=== PATIENT | male | born 1955 ===

== ENCOUNTER 2018-05-10 10:03 | Observation (INO) | payer OTHER ==
--- NOTE | 2018-05-10 10:24 | C.PDOC ---
History Of Present Illness 62 y/o male, w/PMhx of diabetes, presents to the ER complaining of red raised rash and itching to bilateral anterior cubital fossa , hands, feet, and back of head which has been present for the past few days. Patient states that he was seen in [facility] 3 days and he was prescribed Cephalaxin, Prednisone and Benadryl. However, he felt worse so he returned to [facility] for a 2nd visit the same day. He continued taking the medications with out relief. His symptoms worsened and he has pain and swelling to bottom of bilateral feet. He is unable to bear weight. Denies having fever, cough, runny nose, chest pain, SOB, nausea, vomiting, and diarrhea. Time Seen by Provider: 05/10/18 10:16 Chief Complaint (Nursing): Abnormal Skin Integrity History Per: Patient History/Exam Limitations: no limitations Onset/Duration Of Symptoms: Days Current Symptoms Are (Timing): Still Present Severity: Moderate Past Medical History Reviewed: Historical Data, Nursing Documentation, Vital Signs Vital Signs: Last Vital Signs Temp 99.0 F 05/10/18 10:29 Pulse 119 H 05/10/18 10:14 Resp 18 05/10/18 10:14 BP 153/84 H 05/10/18 10:14 Pulse Ox 96 05/10/18 12:14 - Medical History PMH: Diabetes Surgical History: No Surg Hx Family History: States: No Known Family Hx Review Of Systems Except As Marked, All Systems Reviewed And Found Negative. Constitutional: Negative for: Fever, Chills ENT: Negative for: Nose Discharge Cardiovascular: Negative for: Chest Pain Respiratory: Negative for: Cough, Shortness of Breath Gastrointestinal: Negative for: Nausea, Vomiting, Diarrhea Skin: Positive for: Rash (anterior cubital fossa, hands, feet, torso, back of head) Physical Exam - Physical Exam Appears: Non-toxic, No Acute Distress Skin: Warm, Dry, Rash (raised urticaria to bilateral anterior cubital fossa , hands, feet, and back of head ) Head: Atraumatic, Normacephalic Eye(s): bilateral: Normal Inspection Nose: Normal Oral Mucosa: Moist Throat: Normal, No Erythema, No Exudate Neck: Supple Chest: Symmetrical Cardiovascular: Rhythm Regular Respiratory: Normal Breath Sounds, No Rales, No Rhonchi, No Wheezing Neurological/Psych: Oriented x3, Normal Speech ED Course And Treatment - Laboratory Results Result Diagrams: 05/10/18 10:47 05/10/18 10:47 O2 Sat by Pulse Oximetry: 96 (RA) Pulse Ox Interpretation: Normal - Other Rad CXR X-Ray: Viewed By Me, Read By Radiologist Interpretation: Date of service: 05/10/2018. HISTORY: Sepsis Patient. COMPARISON: No prior. FINDINGS: LUNGS: Low-normal inspiration. No consolidation. PLEURA: No significant pleural effusion identified, no pneumothorax apparent. CARDIOVASCULAR: Normal. Probable prominent vessels seen on end the perihilar location. OSSEOUS STRUCTURES: No significant abnormalities. VISUALIZED UPPER ABDOMEN: Mild asymmetrical elevation the right hemidiaphragm. OTHER FINDINGS: None. IMPRESSION: No consolidation to suggest an infiltrate. - Physician Consult Information Time Consulting Physician Contacted: 12:08 Physician Contacted: Timoteo Celestin Outcome Of Conversation: Dr.Pandya coleman consulting with ID. Medical Decision Making Medical Decision Making: Plan: --Labs --UA --CXR --Benadryl IV --Prednisone IV --Morphine IV Disposition Discussed With Dr.: Timoteo Celestin Counseled Patient/Family Regarding: Studies Performed, Need For Followup - Disposition Disposition: HOSPITALIZED Disposition Time: 12:09 Forms: [employer] (Tai[place]ese) - Clinical Impression Clinical Impression: Skin lesion, Hives - Scribe Statement The provider has reviewed the documentation as recorded by the Edouardibbree Draper Provider Attestation: All medical record entries made by the Scribe were at my direction and personally dictated by me. I have reviewed the chart and agree that the record accurately reflects my personal performance of the history, physical exam, medical decision making, and the department course for this patient. I have also personally directed, reviewed, and agree with the discharge instructions and disposition. Decision To Admit - Pt Status Changed To: Hospital Disposition Of: Observation - . Bed Request Type: Regular Admitting Physician: Timoteo Celestin Patient Diagnosis: Skin lesion, Hives
--- NOTE | 2018-05-10 10:40 | RAD ---
Date of service: 05/10/2018 HISTORY: Sepsis Patient COMPARISON: No prior. FINDINGS: LUNGS: Low-normal inspiration. No consolidation. PLEURA: No significant pleural effusion identified, no pneumothorax apparent. CARDIOVASCULAR: Normal. Probable prominent vessels seen on end the perihilar location. OSSEOUS STRUCTURES: No significant abnormalities. VISUALIZED UPPER ABDOMEN: Mild asymmetrical elevation the right hemidiaphragm OTHER FINDINGS: None. IMPRESSION: No consolidation to suggest an infiltrate.
[2018-05-10 10:53] LABS: BASO # 0.1 K/uL (0.0-0.2); BASO % 0.8 % (0.0-2.0); EOS % 0.2 % (0.0-4.0); HEMOGLOBIN 16.9 g/dL (12.0-18.0); LYMPH # 1.8 K/uL (1.0-4.3); LYMPH % 12.4 % (20.0-40.0); MEAN CELL VOLUME 81.6 fL (80.0-94.0); MEAN CORPUSCULAR HEMOGLOBIN 27.8 pg (27.0-31.0); MEAN CORPUSCULAR HGB CONC 34.1 g/dL (33.0-37.0); MEAN PLATELET VOLUME 8.5 fL (7.2-11.7); MONO # 0.4 K/uL (0.0-0.8); MONO % 2.9 % (0.0-10.0); NEUT # 12.2 K/uL (1.8-7.0); NEUT % 83.7 % (50.0-75.0); NRBC % 0.1 % (0.0-2.0); RBC 6.05 Mil/uL (4.40-5.90); RED CELL DISTRIBUTION WIDTH 13.6 % (11.5-14.5); WHITE BLOOD COUNT 14.6 K/uL (4.8-10.8)
[2018-05-10 11:06] LABS: CALCIUM 9.2 mg/dl (8.6-10.4); GFR NON-AFRICAN AMERICAN > 60
[2018-05-10 11:08] LABS: ALB/GLOB RATIO 1.3 (1.0-2.1); ALBUMIN 4.1 g/dL (3.5-5.0); ALT/SGPT 25 U/L (21-72); AST/SGOT 37 U/L (17-59); BLOOD UREA NITROGEN 19 mg/dL (9-20)
[2018-05-10] MEDS ORDERED: DiphenhydrAMINE 50 mg/ml Inj IVP STA (11:19)
[2018-05-10] MEDS ORDERED: DiphenhydrAMINE 50 mg/ml Inj ONE (11:38)
[2018-05-10] MEDS ORDERED: Morphine 4 MG/ML VIAL ONE (11:38)
[2018-05-10 11:51] LABS: VENOUS BLOOD GAS BASE EXCESS -4.6 mmol/L (0.0-2.0); VENOUS BLOOD GAS PCO2 32 mmHg (40-60); VENOUS BLOOD GAS PO2 49 mm/Hg (30-55); VENOUS BLOOD PH 7.39 (7.32-7.43)
[2018-05-10 12:24] VITALS: RESP 20
[2018-05-10 12:33] LABS: URINE BILIRUBIN NEGATIVE (NEGATIVE); URINE BLOOD NEGATIVE (NEGATIVE); URINE CLARITY Clear (Clear); URINE COLOR Yellow (YELLOW); URINE GLUCOSE (UA) 3+ mg/dL (Normal); URINE LEUKOCYTE ESTERASE NEG Leu/uL (Negative); URINE PROTEIN NEGATIVE (NEGATIVE); URINE UROBILINOGEN NORMAL mg/dL (0.2-1.0)
[2018-05-10] MEDS ORDERED: Morphine 4 MG/ML VIAL IV PRN (14:22)
--- NOTE | 2018-05-10 14:22 | CP.PCM.HP ---
History of Present Illness - History of Present Illness History of Present Illness: CHIEF COMPLAINTS TODAY : Pain in the bilateral feet and hands secondary to new skin lesion 2 days ago patient broke out skin lesions urticarial type both feet in the process of the upper and lower extremities. Presented to [facility] was given oral antibiotics and prednisone without any relief patient continues to have increased pain in both feet and unable to walk. Patient has a history of diabetes no previous history of any allergies or skin lesions or travel outside the country ROS. HEENT : N. Resp : No cough, wheezing ,pleuritic CP ,or hemoptysis Cardio : No anginal CP, PND, orthopnea, palpitation GI : No abd.pain, n/v ,diarrhea or GI bleeding . 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 Musculoskel : No joint swelling , Derm : Urticarial rash Psych : Normal affect. Ext : No swelling ,calf pain PE. Pt. is alert awake in no distress. V.S As noted in the chart Head ,ear nose,throat and eyes : Normal. Neck : Supple with normal carotids. Lungs: Clear air entry. Heart : S1 & S2 normal with S4. No murmur. Abd : Soft non tender with normal bowel sounds. Neuro : Moves all ext. with no localized deficit. Ext : No edema with intact pulses.Non tender calves Derm : Erythematous urticarial wheals on both antecubital and knee fossa. LABS/RADIOLOGY: ASSESSMENT/PLAN : Generalized urticaria etiology unclear Type 2 diabetes. Present on Admission - Present on Admission Any Indicators Present on Admission: No Past Patient History - Past Social History Smoking Status: Never Smoked - CARDIAC Hx Hypertension: Yes - ENDOCRINE/METABOLIC Hx Diabetes Mellitus Type 1: Yes - PSYCHIATRIC Hx Substance Use: No - SURGICAL HISTORY Hx Surgeries: No - ANESTHESIA Hx Anesthesia: No Meds Allergies/Adverse Reactions: Allergies Allergy/AdvReac Type Severity Reaction Status Date / Time No Known Allergies Allergy Verified 05/10/18 10:17 Results - Vital Signs Recent Vital Signs: Last Vital Signs Temp 99.1 F 05/10/18 12:23 Pulse 118 H 05/10/18 12:23 Resp 20 05/10/18 12:23 BP 161/81 H 05/10/18 12:23 Pulse Ox 98 05/10/18 12:23 - Labs Result Diagrams: 05/10/18 10:47 05/10/18 10:47 Labs: Laboratory Results - last 24 hr 05/10/18 05/10/18 05/10/18 10:47 10:47 11:47 WBC 14.6 H RBC 6.05 H Hgb 16.9 Hct 49.4 MCV 81.6 MCH 27.8 MCHC 34.1 RDW 13.6 Plt Count 235 MPV 8.5 Neut % (Auto) 83.7 H Lymph % (Auto) 12.4 L [place] % (Auto) 2.9 Eos % (Auto) 0.2 Baso % (Auto) 0.8 Neut # (Auto) 12.2 H Lymph # (Auto) 1.8 [place] # (Auto) 0.4 Eos # (Auto) 0.0 Baso # (Auto) 0.1 ESR pO2 49 VBG pH 7.39 VBG pCO2 32 L VBG HCO3 21.0 VBG Total CO2 20.4 L VBG O2 Sat (Calc) 88.5 H VBG Base Excess -4.6 L VBG Potassium 3.8 Glucose 235 H Lactate 2.5 H Sodium 140 137.0 Potassium 4.4 Chloride 103 109.0 H Carbon Dioxide 19 L Anion Gap 22 H BUN 19 Creatinine 0.7 L Est GFR ( Amer) > 60 Est GFR (Non-Af Amer) > 60 Random Glucose 273 H Calcium 9.2 Total Bilirubin 0.9 AST 37 ALT 25 Alkaline Phosphatase 74 C-React Prot High Sens Total Protein 7.4 Albumin 4.1 Globulin 3.3 Albumin/Globulin Ratio 1.3 Venous Blood Potassium 3.8 Urine Color Urine Clarity Urine pH Ur Specific [place] Urine Protein Urine Glucose (UA) Urine Ketones Urine Blood Urine Nitrate Urine Bilirubin Urine Urobilinogen Ur Leukocyte Esterase Urine WBC (Auto) 05/10/18 05/10/18 05/10/18 12:03 12:12 12:12 WBC RBC Hgb Hct MCV MCH MCHC RDW Plt Count MPV Neut % (Auto) Lymph % (Auto) [place] % (Auto) Eos % (Auto) Baso % (Auto) Neut # (Auto) Lymph # (Auto) [place] # (Auto) Eos # (Auto) Baso # (Auto) ESR 13 pO2 VBG pH VBG pCO2 VBG HCO3 VBG Total CO2 VBG O2 Sat (Calc) VBG Base Excess VBG Potassium Glucose Lactate Sodium Potassium Chloride Carbon Dioxide Anion Gap BUN Creatinine Est GFR ( Amer) Est GFR (Non-Af Amer) Random Glucose Calcium Total Bilirubin AST ALT Alkaline Phosphatase C-React Prot High Sens > 15.00 H Total Protein Albumin Globulin Albumin/Globulin Ratio Venous Blood Potassium Urine Color Yellow Urine Clarity Clear Urine pH 5.0 Ur Specific [place] 1.029 Urine Protein Negative Urine Glucose (UA) 3+ H Urine Ketones Negative Urine Blood Negative Urine Nitrate Negative Urine Bilirubin Negative Urine Urobilinogen Normal Ur Leukocyte Esterase Neg Urine WBC (Auto) < 1
[2018-05-10] MEDS: MethylPREDNISolone 40 mg Vial IVP SCH ×2 (15:21→21:53)
[2018-05-10] MEDS ORDERED: (Novolin R) Insulin Human Regular 100 units/ml vial ONE (17:00)
[2018-05-10] MEDS: (Novolin R) Insulin Human Regular 100 units/ml vial SC SCH ×2 (17:08→23:12)
--- NOTE | 2018-05-10 22:49 | CP.PCM.CON ---
History of Present Illness - History of Present Illness History of Present Illness: INFECTIOUS DISEASE CONSULT; HPI; 62-year-old male with history of insulin-dependent diabetes mellitus, who presents to [facility] ER on 05/10/18 with complains of generalized urticarial rash on trunk lower extremities bilateral hands and feet and also to the face with edema of the hands and as reported by the daughter facial edema. Patient had presented to [facility] 3 days ago and was prescribed Keflex, prednisone and Benadryl, however he felt worse so he returned to [facility] for a second visit to same day. He was treated with steroids and discharged with same medications. His symptoms worsened especially the pain both feet with swelling off both his feet and hands. He states he was unable to bear weight and decided to come to the ER. Patient denies having fever, cough, shortness of breath, dysphagia, nausea, vomiting or diarrhea. Patient advised admission for observation and started on steroids, Benadryl and H2 blockers, and analgesics. Patient denies any an allergic trigger was on per any new medication, food or insect sting. States this is the first time it has ever happened. patient denies any recent history off upper respiratory tract infection or intake of seafood. Patient denies any history off allergies or previous skin conditions or recent travel. INFECTIOUS DISEASE CONSULTATION REQUESTE BY PMD LEUKOCYTOSIS , HIVES VERSUS ALLERGIC REACTION. PMH: Diabetes Surgical History: No Surg Hx Family History: States: No Known Family Hx. Allergies;; NKA. Review of Systems - Constitutional Constitutional: absent: Chills, Fever, Weight Loss - EENT Eyes: absent: Change in Vision Ears: absent: Ear Discharge, Ear Pain Nose/Mouth/Throat: absent: Nasal Congestion, Nasal Obstruction, Dysphagia, Hoarsness, Mouth Lesions, Throat Swelling, Tongue Swelling, Neck Pain - Cardiovascular Cardiovascular: Pedal Edema. absent: Chest Pain, Dyspnea - Respiratory Respiratory: absent: Cough, Dyspnea, Chest Congestion - Gastrointestinal Gastrointestinal: absent: Abdominal Pain, Diarrhea, Nausea, Odynophagia, Vomiting - Genitourinary Genitourinary: absent: Difficulty Urinating, Dysuria, Bladder Distension - Musculoskeletal Additional comments: BILATERAL HAND SWELLING AND ERYTHEMA AND SWELLING BOTH FEET PLANTAR ASPECT. - Neurological Neurological: Burning Sensations (BILATERAL FEETAND HANDS.). absent: Headaches - Hematologic/Lymphatic Hematologic: As Per HPI. absent: Lymphadenopathy Past Patient History - Past Social History Smoking Status: Never Smoked - CARDIAC Hx Hypertension: Yes - ENDOCRINE/METABOLIC Hx Diabetes Mellitus Type 1: Yes - PSYCHIATRIC Hx Substance Use: No - SURGICAL HISTORY Hx Surgeries: No - ANESTHESIA Hx Anesthesia: No Meds Allergies/Adverse Reactions: Allergies Allergy/AdvReac Type Severity Reaction Status Date / Time No Known Allergies Allergy Verified 05/10/18 10:17 - Medications Medications: Current Medications Diphenhydramine HCl (Benadryl) 50 mg IM Q8H PRN PRN Reason: Allergy symptoms Docusate Sodium (Colace) 100 mg PO DAILY [facility] Gabapentin (Neurontin) 300 mg PO BID [facility] Last Admin: 05/10/18 18:03 Dose: 300 mg Heparin Sodium (Porcine) (Heparin) 5,000 units SC Q12 [facility] Last Admin: 05/10/18 21:55 Dose: 5,000 units Insulin Human Regular (Novolin R) 0 unit SC ACHS [facility] PRN Reason: Protocol Last Admin: 05/10/18 17:08 Dose: 3 unit Methylprednisolone (Solu-Medrol) 40 mg IVP Q8 [facility] Last Admin: 05/10/18 21:53 Dose: 40 mg Morphine Sulfate (Morphine) 4 mg IV Q6 PRN PRN Reason: Pain, moderate (4-7) Pantoprazole Sodium (Protonix Inj) 40 mg IVP DAILY [facility] Last Admin: 05/10/18 17:08 Dose: 40 mg Physical Exam - Head Exam Head Exam: NORMAL INSPECTION, NORMOCEPHALIC - Eye Exam Eye Exam: EOMI, PERRL. absent: Scleral icterus Pupil Exam: PERRL - ENT Exam ENT Exam: Mucous Membranes Moist, Normal Oropharynx Additional comments: SOME FACIAL EDEMA - Neck Exam Neck exam: Positive for: Full Rom, Normal Inspection. Negative for: Lymphadenopathy, Thyromegaly - Respiratory Exam Respiratory Exam: NORMAL BREATHING PATTERN - Cardiovascular Exam Cardiovascular Exam: REGULAR RHYTHM, +S1, +S2 - GI/Abdominal Exam GI & Abdominal Exam: Normal Bowel Sounds, Soft. absent: Organomegaly, Tenderness - Extremities Exam Extremities exam: Positive for: normal capillary refill, pedal edema, tenderness , pedal pulses present. Negative for: calf tenderness - Back Exam Back exam: rash noted (PATIENT HAS TRUNCAL URTICARIAL RASH EXTENDING ONTO BILATERAL LOWER EXTREMITIES, UPPER EXTREMITIES, FACIAL AND BILATERAL FEET AND HANDS INCLUDING, PALMS AND SOLES.) - Neurological Exam Neurological exam: Alert, CN II-XII Intact, Oriented x3, Reflexes Normal - Psychiatric Exam Psychiatric exam: Normal Mood - Skin Skin Exam: Normal Color, Urticaria, Warm Results - Vital Signs Recent Vital Signs: Last Vital Signs Temp 97.9 F 05/10/18 18:57 Pulse 100 H 05/10/18 18:57 Resp 20 05/10/18 18:57 BP 137/75 05/10/18 18:57 Pulse Ox 94 L 05/10/18 18:57 - Labs Result Diagrams: 05/10/18 10:47 05/10/18 10:47 Labs: Laboratory Results - last 24 hr 05/10/18 05/10/18 05/10/18 10:47 10:47 11:47 WBC 14.6 H RBC 6.05 H Hgb 16.9 Hct 49.4 MCV 81.6 MCH 27.8 MCHC 34.1 RDW 13.6 Plt Count 235 MPV 8.5 Neut % (Auto) 83.7 H Lymph % (Auto) 12.4 L [place] % (Auto) 2.9 Eos % (Auto) 0.2 Baso % (Auto) 0.8 Neut # (Auto) 12.2 H Lymph # (Auto) 1.8 [place] # (Auto) 0.4 Eos # (Auto) 0.0 Baso # (Auto) 0.1 ESR pO2 49 VBG pH 7.39 VBG pCO2 32 L VBG HCO3 21.0 VBG Total CO2 20.4 L VBG O2 Sat (Calc) 88.5 H VBG Base Excess -4.6 L VBG Potassium 3.8 Glucose 235 H Lactate 2.5 H Sodium 140 137.0 Potassium 4.4 Chloride 103 109.0 H Carbon Dioxide 19 L Anion Gap 22 H BUN 19 Creatinine 0.7 L Est GFR ( Amer) > 60 Est GFR (Non-Af Amer) > 60 POC Glucose (mg/dL) Random Glucose 273 H Calcium 9.2 Total Bilirubin 0.9 AST 37 ALT 25 Alkaline Phosphatase 74 C-React Prot High Sens Total Protein 7.4 Albumin 4.1 Globulin 3.3 Albumin/Globulin Ratio 1.3 Vitamin B12 Venous Blood Potassium 3.8 Urine Color Urine Clarity Urine pH Ur Specific [place] Urine Protein Urine Glucose (UA) Urine Ketones Urine Blood Urine Nitrate Urine Bilirubin Urine Urobilinogen Ur Leukocyte Esterase Urine WBC (Auto) 05/10/18 05/10/18 05/10/18 12:03 12:12 12:12 WBC RBC Hgb Hct MCV MCH MCHC RDW Plt Count MPV Neut % (Auto) Lymph % (Auto) [place] % (Auto) Eos % (Auto) Baso % (Auto) Neut # (Auto) Lymph # (Auto) [place] # (Auto) Eos # (Auto) Baso # (Auto) ESR 13 pO2 VBG pH VBG pCO2 VBG HCO3 VBG Total CO2 VBG O2 Sat (Calc) VBG Base Excess VBG Potassium Glucose Lactate Sodium Potassium Chloride Carbon Dioxide Anion Gap BUN Creatinine Est GFR ( Amer) Est GFR (Non-Af Amer) POC Glucose (mg/dL) Random Glucose Calcium Total Bilirubin AST ALT Alkaline Phosphatase C-React Prot High Sens > 15.00 H Total Protein Albumin Globulin Albumin/Globulin Ratio Vitamin B12 Venous Blood Potassium Urine Color Yellow Urine Clarity Clear Urine pH 5.0 Ur Specific [place] 1.029 Urine Protein Negative Urine Glucose (UA) 3+ H Urine Ketones Negative Urine Blood Negative Urine Nitrate Negative Urine Bilirubin Negative Urine Urobilinogen Normal Ur Leukocyte Esterase Neg Urine WBC (Auto) < 1 05/10/18 05/10/18 05/10/18 16:48 19:35 21:16 WBC RBC Hgb Hct MCV MCH MCHC RDW Plt Count MPV Neut % (Auto) Lymph % (Auto) [place] % (Auto) Eos % (Auto) Baso % (Auto) Neut # (Auto) Lymph # (Auto) [place] # (Auto) Eos # (Auto) Baso # (Auto) ESR pO2 VBG pH VBG pCO2 VBG HCO3 VBG Total CO2 VBG O2 Sat (Calc) VBG Base Excess VBG Potassium Glucose Lactate Sodium Potassium Chloride Carbon Dioxide Anion Gap BUN Creatinine Est GFR ( Amer) Est GFR (Non-Af Amer) POC Glucose (mg/dL) 201 H 324 H Random Glucose Calcium Total Bilirubin AST ALT Alkaline Phosphatase C-React Prot High Sens Total Protein Albumin Globulin Albumin/Globulin Ratio Vitamin B12 439 Venous Blood Potassium Urine Color Urine Clarity Urine pH Ur Specific [place] Urine Protein Urine Glucose (UA) Urine Ketones Urine Blood Urine Nitrate Urine Bilirubin Urine Urobilinogen Ur Leukocyte Esterase Urine WBC (Auto) - Imaging and Cardiology Chest x-ray Status: Report reviewed by me (no acute infiltrate.) Assessment & Plan (1) Urticaria Assessment and Plan: PATIENT HAS URTICARIA R/O ALLERGIC VS IMMUNE MEDIATED VASCULITIS. R/O ANGIOEDEMA ? ALLERGIC VS AQUIRED CHECK ARMANDO. IMMUNOGLOBULINS-IGE,IGA,IGG,IGM. C2,C4, CH50. MYCOPLASMA iGm. RPR. VIT B12. CONTINUE iv sOLU-mEDROL, bENADRYL, AND ANALGESICS. START IV PROTONIX 40 MG ONCE A DAY DAILY. F/U BLOOD CULTURES, ua AND URINE CULTURES. WATCH FOR ANY RESPIRATORY COMPROMISE. Status: Acute (2) Diabetes mellitus Assessment and Plan: HEMOGLOBIN a1C. aDEQUATE CONTROL OF BLOOD SUGARS PATIENT ON STEROIDS. Status: Acute (3) Hypertension Assessment and Plan: PATIENT ON COREG nOT ON Yonathan THERAPY Status: Acute
[2018-05-11] MEDS: MethylPREDNISolone 40 mg Vial IVP SCH ×3 (06:08→21:21)
[2018-05-11] MEDS: (Novolin R) Insulin Human Regular 100 units/ml vial SC SCH ×4 (08:21→21:58)
[2018-05-11 08:22] LABS: IMMUNOGLOBULIN A 268.8 mg/dL (70.0-400.0)
[2018-05-11 08:24] LABS: IMMUNOGLOBULIN M < 25.0 mg/dL (40.0-230.0)
[2018-05-11] MEDS: DiphenhydrAMINE 50 mg/ml Inj IM PRN ×2 (08:36→16:45)
[2018-05-11 12:24] LABS: ANA PATTERN SPECKLED
--- NOTE | 2018-05-11 13:42 | CP.PCM.PN ---
Subjective - Date & Time of Evaluation Date of Evaluation: 05/11/18 Time of Evaluation: 13:40 - Subjective Subjective: CHIEF COMPLAINTS TODAY : Less pain and swelling of the both upper and lower extremities ROS. HEENT : N. Resp : No cough, wheezing ,pleuritic CP ,or hemoptysis Cardio : No anginal CP, PND, orthopnea, palpitation GI : No abd.pain, n/v ,diarrhea or GI bleeding . 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 Musculoskel : No joint swelling , Derm urticarial rash Psych : Normal affect. Ext : No swelling ,calf pain PE. Pt. is alert awake in no distress. V.S As noted in the chart Head ,ear nose,throat and eyes : Normal. Neck : Supple with normal carotids. Lungs: Clear air entry. Heart : S1 & S2 normal with S4. No murmur. Abd : Soft non tender with normal bowel sounds. Neuro : Moves all ext. with no localized deficit. Ext : No edema with intact pulses.Non tender calves with swelling of the palms and soles are receding Derm : Erythematous raised wheals on the upper extremities LABS/RADIOLOGY: ASSESSMENT/PLAN : Continue present medications Sugars are up secondary to steroids at all his diabetic medications taken at home Objective - Vital Signs/Intake and Output Vital Signs (last 24 hours): Temp Pulse Resp BP Pulse Ox 98.0 F 84 20 141/70 97 05/11/18 08:18 05/11/18 08:18 05/11/18 08:18 05/11/18 08:18 05/11/18 08:18 Intake and Output: 05/11/18 05/11/18 11:59 23:59 Intake Total 200 Balance 200 - Medications Medications: Current Medications Diphenhydramine HCl (Benadryl) 50 mg IM Q8H PRN PRN Reason: Allergy symptoms Last Admin: 05/11/18 08:36 Dose: 50 mg Docusate Sodium (Colace) 100 mg PO DAILY [facility] Last Admin: 05/11/18 10:16 Dose: 100 mg Gabapentin (Neurontin) 300 mg PO BID [facility] Last Admin: 05/11/18 10:16 Dose: 300 mg Heparin Sodium (Porcine) (Heparin) 5,000 units SC Q12 [facility] Last Admin: 05/11/18 10:16 Dose: 5,000 units Insulin Human Regular (Novolin R) 0 unit SC ACHS [facility] PRN Reason: Protocol Last Admin: 05/11/18 11:47 Dose: 8 unit Methylprednisolone (Solu-Medrol) 40 mg IVP Q8 [facility] Last Admin: 05/11/18 13:10 Dose: 40 mg Morphine Sulfate (Morphine) 4 mg IV Q6 PRN PRN Reason: Pain, moderate (4-7) Last Admin: 05/11/18 00:06 Dose: 4 mg Pantoprazole Sodium (Protonix Inj) 40 mg IVP DAILY [facility] Last Admin: 05/11/18 10:16 Dose: 40 mg - Labs Labs: 05/10/18 10:47 05/10/18 10:47
[2018-05-11] MEDS ORDERED: Home Med 1 UNIT (Empagliflozin [Jardiance] 25 MG) PO SCH (13:45)
[2018-05-11] MEDS: (Lantus) Insulin Glargine, Recombinant SC SCH (17:12)
--- NOTE | 2018-05-11 17:53 | CP.PCM.PN ---
Subjective - Date & Time of Evaluation Date of Evaluation: 05/11/18 Time of Evaluation: 17:53 - Subjective Subjective: CHIEF COMPLAINTS TODAY : afebrile, C/O ITCHING less facial swelling denies SOB/OR DYSPHAGIA Less pain and swelling of the both upper and lower extremities ROS. HEENT : N. Resp : No cough, wheezing ,pleuritic CP ,or hemoptysis Cardio : No anginal CP, PND, orthopnea, palpitation GI : No abd.pain, n/v ,diarrhea or GI bleeding . 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 Musculoskel : No joint swelling , Derm URTICARIAL RASH MUCH IMPROVED. Psych : Normal affect. Ext : No swelling ,calf pain PE. Pt. is alert awake in no distress. V.S As noted in the chart Head ,ear nose,throat and eyes : Normal. Neck : Supple with normal carotids. Lungs: Clear air entry. Heart : S1 & S2 normal with S4. No murmur. Abd : Soft non tender with normal bowel sounds. Neuro : Moves all ext. with no localized deficit. Ext : No edema with intact pulses. SWELLING OF THE PALMS AND SOLES IMPROVING. NONTENDER Derm : ERYTHEMATOUS RAISED WHEALS ON TRUNK AND UPPER EXTREMITIES FADING AWAY. LABS/RADIOLOGY: RPR-NONREACTIVE ESR 13-NORMAL, CRP >15 ARMANDO+VE POSITIVE- spectacled 1:40 c4 43.2 normal Objective - Vital Signs/Intake and Output Vital Signs (last 24 hours): Temp Pulse Resp BP Pulse Ox 98.0 F 78 20 134/68 95 05/11/18 16:33 05/11/18 16:33 05/11/18 16:33 05/11/18 17:25 05/11/18 16:33 Intake and Output: 05/11/18 05/11/18 06:59 18:59 Intake Total 200 300 Balance 200 300 - Medications Medications: Current Medications Carvedilol (Coreg) 12.5 mg PO BID [facility] Last Admin: 05/11/18 17:25 Dose: 12.5 mg Diphenhydramine HCl (Benadryl) 50 mg IM Q8H PRN PRN Reason: Allergy symptoms Last Admin: 05/11/18 16:45 Dose: 50 mg Docusate Sodium (Colace) 100 mg PO DAILY [facility] Last Admin: 05/11/18 10:16 Dose: 100 mg Gabapentin (Neurontin) 300 mg PO BID [facility] Last Admin: 05/11/18 17:12 Dose: 300 mg Heparin Sodium (Porcine) (Heparin) 5,000 units SC Q12 [facility] Last Admin: 05/11/18 10:16 Dose: 5,000 units Home Med (Empagliflozin [Jardiance]) 25 mg PO DAILY [facility] Insulin Glargine (Lantus) 45 unit SC BID [facility] Last Admin: 05/11/18 17:12 Dose: 45 units Insulin Human Regular (Novolin R) 0 unit SC ACHS [facility] PRN Reason: Protocol Last Admin: 05/11/18 16:56 Dose: 6 unit Metformin HCl (Glucophage) 1,000 mg PO BIDCC [facility] Last Admin: 05/11/18 16:44 Dose: 1,000 mg Methylprednisolone (Solu-Medrol) 40 mg IVP Q8 [facility] Last Admin: 05/11/18 13:10 Dose: 40 mg Morphine Sulfate (Morphine) 4 mg IV Q6 PRN PRN Reason: Pain, moderate (4-7) Last Admin: 05/11/18 00:06 Dose: 4 mg Pantoprazole Sodium (Protonix Inj) 40 mg IVP DAILY [facility] Last Admin: 05/11/18 10:16 Dose: 40 mg Sitagliptin Phosphate (Januvia) 50 mg PO DAILY [facility] - Labs Labs: 05/10/18 10:47 05/10/18 10:47 Assessment and Plan (1) Urticaria Assessment & Plan: improving. CONTINUE iv SOLU-mEDROL, bENADRYL, AND ANALGESICS. SWITCH TO PO MEDROL PACK IN AM as patient improving continue IV PROTONIX 40 MG ONCE A DAY DAILY. BLOOD CULTURES, URINE CULTURES -ve to date. Etiology of urticaria not clear ? allergic versus autoimmune vasculitis vs idiopathic AWAIT FURTHER STUDIES CHECK HIV 1 AND 2 ANTIBODY. T-CELL SUBSET STUDIES WITH CD4/CD8 RATIOS. DISCUSSED WITH FAMILY. F/U WITH ALLERGY /IMMUNOLOGY OPD. Status: Acute (2) Diabetes mellitus Assessment & Plan: BLOOD SUGAR SLIGHTLY HIGH, MOST PROBABLY SECONDARY TO STEROIDS. Status: Acute (3) Hypertension Status: Acute
[2018-05-11] MEDS ORDERED: Home Med 1 UNIT (Sitagliptin Phos/Metformin Hcl [Janumet 50-1,000 Mg Tablet] 1 EACH) PO SCH (18:00)
[2018-05-12] MEDS: DiphenhydrAMINE 50 mg/ml Inj IM PRN ×2 (01:56→11:19)
[2018-05-12] MEDS: MethylPREDNISolone 40 mg Vial IVP SCH ×2 (06:03→14:43)
[2018-05-12] MEDS: (Novolin R) Insulin Human Regular 100 units/ml vial SC SCH ×3 (08:13→17:15)
[2018-05-12 09:07] LABS: BASO % 0.3 % (0.0-2.0); LYMPH # 1.1 K/uL (1.0-4.3); LYMPH % 9.6 % (20.0-40.0); MEAN CELL VOLUME 82.7 fL (80.0-94.0); MEAN CORPUSCULAR HEMOGLOBIN 27.9 pg (27.0-31.0); MEAN CORPUSCULAR HGB CONC 33.7 g/dL (33.0-37.0); MEAN PLATELET VOLUME 8.4 fL (7.2-11.7); MONO # 0.3 K/uL (0.0-0.8); MONO % 2.3 % (0.0-10.0); NEUT # 9.7 K/uL (1.8-7.0); NEUT % 87.8 % (50.0-75.0); PLATELET COUNT 203 K/uL (130-400); RBC 4.58 Mil/uL (4.40-5.90); RED CELL DISTRIBUTION WIDTH 13.3 % (11.5-14.5); WHITE BLOOD COUNT 11.1 K/uL (4.8-10.8)
[2018-05-12 09:13] LABS: HEMOGLOBIN 12.8 g/dL (12.0-18.0)
[2018-05-12 09:33] LABS: ALB/GLOB RATIO 1.3 (1.0-2.1); ALBUMIN 3.5 g/dL (3.5-5.0); ALT/SGPT 26 U/L (21-72); AST/SGOT 34 U/L (17-59); BLOOD UREA NITROGEN 24 mg/dL (9-20); CALCIUM 8.8 mg/dl (8.6-10.4); GFR NON-AFRICAN AMERICAN > 60
[2018-05-12 10:06] LABS: LYMPHOCYTE 10 % (20-40); MONOCYTE 1 % (0-10); NEUTROPHIL 89 % (50-75); TOTAL CELLS COUNTED 100
[2018-05-12 10:07] LABS: PLATELET ESTIMATE NORMAL (NORMAL)
[2018-05-12] MEDS: (Lantus) Insulin Glargine, Recombinant SC SCH ×2 (10:55→17:15)
--- NOTE | 2018-05-12 14:17 | CP.PCM.DIS ---
Provider - Provider Date of Admission: 05/10/18 12:10 Attending physician: Timoteo Celestin MD Time Spent in preparation of Discharge (in minutes): 36 Hospital Course - Lab Results Lab Results: Micro Results 05/10/18 12:03 Urine,Random Urine Culture - Final No Growth (<1,000 CFU/ML) 05/10/18 10:43 Blood Blood Culture - Preliminary NO GROWTH AFTER 24 HOURS 05/10/18 11:00 Blood Blood Culture - Preliminary NO GROWTH AFTER 24 HOURS Most Recent Lab Values WBC 11.1 K/uL (4.8-10.8) H 05/12/18 08:54 RBC 4.58 Mil/uL (4.40-5.90) 05/12/18 08:54 Hgb 12.8 g/dL (12.0-18.0) D 05/12/18 08:54 Hct 37.9 % (35.0-51.0) 05/12/18 08:54 MCV 82.7 fL (80.0-94.0) 05/12/18 08:54 MCH 27.9 pg (27.0-31.0) 05/12/18 08:54 MCHC 33.7 g/dL (33.0-37.0) 05/12/18 08:54 RDW 13.3 % (11.5-14.5) 05/12/18 08:54 Plt Count 203 K/uL (130-400) 05/12/18 08:54 MPV 8.4 fL (7.2-11.7) 05/12/18 08:54 Neut % (Auto) 87.8 % (50.0-75.0) H 05/12/18 08:54 Lymph % (Auto) 9.6 % (20.0-40.0) L 05/12/18 08:54 [place] % (Auto) 2.3 % (0.0-10.0) 05/12/18 08:54 Eos % (Auto) 0.0 % (0.0-4.0) 05/12/18 08:54 Baso % (Auto) 0.3 % (0.0-2.0) 05/12/18 08:54 Neut # (Auto) 9.7 K/uL (1.8-7.0) H 05/12/18 08:54 Lymph # (Auto) 1.1 K/uL (1.0-4.3) 05/12/18 08:54 Ponce # (Auto) 0.3 K/uL (0.0-0.8) 05/12/18 08:54 Eos # (Auto) 0.0 K/uL (0.0-0.7) 05/12/18 08:54 Baso # (Auto) 0.0 K/uL (0.0-0.2) 05/12/18 08:54 Neutrophils % (Manual) 89 % (50-75) H 05/12/18 08:54 Lymphocytes % (Manual) 10 % (20-40) L 05/12/18 08:54 Monocytes % (Manual) 1 % (0-10) 05/12/18 08:54 Platelet Estimate Normal (NORMAL) 05/12/18 08:54 ESR 13 mm/hr (0-15) 05/10/18 12:12 pO2 49 mm/Hg (30-55) 05/10/18 11:47 VBG pH 7.39 (7.32-7.43) 05/10/18 11:47 VBG pCO2 32 mmHg (40-60) L 05/10/18 11:47 VBG HCO3 21.0 mmol/L 05/10/18 11:47 VBG Total CO2 20.4 mmol/L (22-28) L 05/10/18 11:47 VBG O2 Sat (Calc) 88.5 % (40-65) H 05/10/18 11:47 VBG Base Excess -4.6 mmol/L (0.0-2.0) L 05/10/18 11:47 VBG Potassium 3.8 mmol/L (3.6-5.2) 05/10/18 11:47 Sodium 137.0 mmol/l (132-148) 05/10/18 11:47 Chloride 109.0 mmol/L (98-107) H 05/10/18 11:47 Glucose 235 mg/dl (75-110) H 05/10/18 11:47 Lactate 2.5 mmol/L (0.7-2.1) H 05/10/18 11:47 Sodium 139 mmol/L (132-148) 05/12/18 08:54 Potassium 4.8 mmol/L (3.6-5.2) 05/12/18 08:54 Chloride 102 mmol/L (98-107) 05/12/18 08:54 Carbon Dioxide 25 mmol/L (22-30) 05/12/18 08:54 Anion Gap 16 (10-20) 05/12/18 08:54 BUN 24 mg/dL (9-20) H 05/12/18 08:54 Creatinine 0.8 mg/dL (0.8-1.5) 05/12/18 08:54 Est GFR ( Amer) > 60 05/12/18 08:54 Est GFR (Non-Af Amer) > 60 05/12/18 08:54 POC Glucose (mg/dL) 306 mg/dL (65-110) H 05/12/18 11:34 Random Glucose 381 mg/dL (75-110) H 05/12/18 08:54 Calcium 8.8 mg/dl (8.6-10.4) 05/12/18 08:54 Total Bilirubin 0.4 mg/dL (0.2-1.3) 05/12/18 08:54 AST 34 U/L (17-59) 05/12/18 08:54 ALT 26 U/L (21-72) 05/12/18 08:54 Alkaline Phosphatase 59 U/L (38-126) 05/12/18 08:54 C-React Prot High Sens > 15.00 mg/L (1.00-3.00) H 05/10/18 12:12 Total Protein 6.1 g/dL (6.3-8.3) L 05/12/18 08:54 Albumin 3.5 g/dL (3.5-5.0) 05/12/18 08:54 Globulin 2.6 gm/dL (2.2-3.9) 05/12/18 08:54 Albumin/Globulin Ratio 1.3 (1.0-2.1) 05/12/18 08:54 Vitamin B12 439 pg/mL (239-931) 05/10/18 19:35 Venous Blood Potassium 3.8 mmol/L (3.6-5.2) 05/10/18 11:47 Urine Color Yellow (YELLOW) 05/10/18 12:03 Urine Clarity Clear (Clear) 05/10/18 12:03 Urine pH 5.0 (5.0-8.0) 05/10/18 12:03 Ur Specific [place] 1.029 (1.003-1.030) 05/10/18 12:03 Urine Protein Negative mg/dL (NEGATIVE) 05/10/18 12:03 Urine Glucose (UA) 3+ mg/dL (Normal) H 05/10/18 12:03 Urine Ketones Negative mg/dL (NEGATIVE) 05/10/18 12:03 Urine Blood Negative (NEGATIVE) 05/10/18 12:03 Urine Nitrate Negative (NEGATIVE) 05/10/18 12:03 Urine Bilirubin Negative (NEGATIVE) 05/10/18 12:03 Urine Urobilinogen Normal mg/dL (0.2-1.0) 05/10/18 12:03 Ur Leukocyte Esterase Neg [place]/uL (Negative) 05/10/18 12:03 Urine WBC (Auto) < 1 /hpf (0-5) 05/10/18 12:03 IgG 758.3 mg/dL (700.0-1600.0) 05/11/18 07:13 IgA 268.8 mg/dL (70.0-400.0) 05/11/18 07:13 IgM < 25.0 mg/dL (40.0-230.0) L 05/11/18 07:13 IgE 154 kU/L (<dg=919) H 05/11/18 07:13 ARMANDO 6 Profile Positive (NEGATIVE) H 05/11/18 07:13 ARMANDO Titer 1:40 H 05/11/18 07:13 ARMANDO Pattern Speckled H 05/11/18 07:13 Complement C4 43.2 mg/dL (14.0-44.0) 05/11/18 07:13 RPR Nonreactive (NONREACTIVE) 05/11/18 07:13 HIV 1&2 Antibody Screen Negative (NEGATIVE) 05/12/18 08:54 - Hospital Course Hospital Course: Pain in the bilateral feet and hands secondary to new skin lesion 2 days ago patient broke out skin lesions urticarial type both feet in the process of the upper and lower extremities. Presented to [facility] was given oral antibiotics and prednisone without any relief patient continues to have increased pain in both feet and unable to walk. Patient has a history of diabetes no previous history of any allergies or skin lesions or travel outside the country patient responded with IV steroids and Benadryl around the clock. ID consult was obtained. IgE levels were elevated IN IgM levels were low ARMANDO was positive with speckled pattern. 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 Patient has no further swelling and extremities or the face. Discharge Exam - Head Exam Head Exam: NORMAL INSPECTION, NORMOCEPHALIC Discharge Plan - Follow Up Plan Condition: GUARDED Disposition: HOME/ ROUTINE
--- NOTE | 2018-05-12 14:24 | CP.PCM.PN ---
Subjective - Date & Time of Evaluation Date of Evaluation: 05/12/18 Time of Evaluation: 14:24 - Subjective Subjective: CHIEF COMPLAINTS TODAY : afebrile, LESS ITCHING FEELING MUCH BETTER ROS. HEENT : N. Resp : No cough, wheezing ,pleuritic CP ,or hemoptysis Cardio : No anginal CP, PND, orthopnea, palpitation GI : No abd.pain, n/v ,diarrhea or GI bleeding . 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 Musculoskel : No joint swelling , Derm URTICARIAL RASH MUCH IMPROVED. Psych : Normal affect. Ext : No swelling ,calf pain PE. Pt. is alert awake in no distress. V.S As noted in the chart Head ,ear nose,throat and eyes : Normal. Neck : Supple with normal carotids. Lungs: Clear air entry. Heart : S1 & S2 normal with S4. No murmur. Abd : Soft non tender with normal bowel sounds. Neuro : Moves all ext. with no localized deficit. Ext : No edema with intact pulses. SWELLING OF THE PALMS AND SOLES IMPROVING. NONTENDER Derm : ERYTHEMATOUS RAISED WHEALS ON TRUNK AND UPPER EXTREMITIES FADING AWAY. LABS/RADIOLOGY: RPR-NONREACTIVE ESR 13-NORMAL, CRP >15 ARMANDO+VE POSITIVE- spectacled 1:40 c4 43.2 normal SERUM IGE HIGH SERUM IGM LOW SERUM IGG N SERUM IGA N Objective - Vital Signs/Intake and Output Vital Signs (last 24 hours): Temp Pulse Resp BP Pulse Ox 97.3 F L 64 20 132/69 95 05/12/18 07:37 05/12/18 07:37 05/12/18 07:37 05/12/18 10:55 05/12/18 08:00 Intake and Output: 05/12/18 05/12/18 06:59 18:59 Intake Total 660 Output Total 500 Balance 160 - Medications Medications: Current Medications Carvedilol (Coreg) 12.5 mg PO BID [facility] Last Admin: 05/12/18 10:55 Dose: 12.5 mg Diphenhydramine HCl (Benadryl) 50 mg IM Q8H PRN PRN Reason: Allergy symptoms Last Admin: 05/12/18 11:19 Dose: 50 mg Docusate Sodium (Colace) 100 mg PO DAILY [facility] Last Admin: 05/12/18 10:55 Dose: 100 mg Gabapentin (Neurontin) 300 mg PO BID [facility] Last Admin: 05/12/18 10:55 Dose: 300 mg Heparin Sodium (Porcine) (Heparin) 5,000 units SC Q12 [facility] Last Admin: 05/12/18 10:55 Dose: 5,000 units Home Med (Empagliflozin [Jardiance]) 25 mg PO DAILY [facility] Insulin Glargine (Lantus) 45 unit SC BID [facility] Last Admin: 05/12/18 10:55 Dose: 45 units Insulin Human Regular (Novolin R) 0 unit SC ACHS [facility] PRN Reason: Protocol Last Admin: 05/12/18 12:33 Dose: 6 unit Metformin HCl (Glucophage) 1,000 mg PO BIDCC [facility] Last Admin: 05/12/18 08:12 Dose: 1,000 mg Methylprednisolone (Solu-Medrol) 40 mg IVP Q8 [facility] Last Admin: 05/12/18 06:03 Dose: 40 mg Morphine Sulfate (Morphine) 4 mg IV Q6 PRN PRN Reason: Pain, moderate (4-7) Last Admin: 05/11/18 00:06 Dose: 4 mg Pantoprazole Sodium (Protonix Ec Tab) 40 mg PO DAILY [facility] Sitagliptin Phosphate (Januvia) 50 mg PO BID [facility] - Labs Labs: 05/12/18 08:54 05/12/18 08:54 Assessment and Plan (1) Urticaria Assessment & Plan: MUCH IMPROVED DC iv SOLU-mEDROL. SWITCH TO PO MEDROL PACK IN AM as patient improving continue PO PEPCID 20MG BID BLOOD CULTURES, URINE CULTURES -ve to date. Etiology of urticaria not clear ? allergic versus autoimmune vasculitis vs idiopathic CHECK HIV 1 AND 2 ANTIBODY.-P T-CELL SUBSET STUDIES WITH CD4/CD8 RATIOS.-P DISCUSSED WITH FAMILY. F/U WITH ALLERGY /IMMUNOLOGY OPD. PT TOLD TO AVOID DRIVING AFTER TAKING BENADRYL CAN TAKE IT AT BEDTIME. Status: Acute (2) Diabetes mellitus Status: Acute (3) Hypertension Status: Acute
[2018-05-12 16:50] VITALS: BP 134/68; PULSE 67; TEMP 97.4; O2SAT 96
[2018-05-13] MEDS ORDERED: Pantoprazole 40 mg EC Tab PO SCH (10:00)
[2018-05-13 16:15] LABS: MYCOPLASMA PNEUMONIAE IGM NEGATIVE (NEGATIVE)
[2018-05-13 17:23] LABS: % CD4 (T HELPER CELL) 35 Percent (30-61); % CD8 (SUPPRESSOR T CELL) 35 Percent (12-42); ABSOLUTE CD4 CELLS 409 Cells/mcL (490-1740); ABSOLUTE CD8 CELLS 411 Cells/mcL (180-1170); ABSOLUTE LYMPHOCYTES 1182 Cells/mcL (850-3900)
== END 2018-05-12 18:20 | disposition home or self-care (01) ==
LOC: C.ER 10:03 → C.9E 12:10 → C.3T 18:02
PROVIDERS: ADMIT Internal Medicine Cardiovascular Disease; ATTEND Internal Medicine Cardiovascular Disease
DX: L50.9 Urticaria, unspecified (principal); I10 Essential (primary) hypertension; D72.829 Elevated white blood cell count, unspecified; E10.9 Type 1 diabetes mellitus without complications; Z79.4 Long term (current) use of insulin
CPT/HCPCS: 36415; 71045; 80053; 81001; 82607; 82784; 82803; 82948; 85025; 85651; 86038; 86039; 86140; 86160; 86162; 86360; 86592; 86703; 86738; 87040; 87086; 96372; 96374; 99285; C9113; G0378; J1200; J1644; J2270; J2920; J2930